=== PATIENT | male | born 2000 | race Caucasian/White ===

== ENCOUNTER 2022-02-21 04:39 | Emergency (ER) | payer OTHER ==
[~2022-02-21] VITALS: Ht 182 cm; Wt 77.0 kg
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
[2022-02-21 07:25] VITALS: BP 142/88
== END 2022-02-21 07:25 | disposition home or self-care (01) ==
LOC: ER FS 04:46
DX: S00.83XA Contusion of other part of head, initial encounter (principal); Y04.8XXA Assault by other bodily force, initial encounter
CPT/HCPCS: 70450; 70486; 72125

== ENCOUNTER 2022-10-06 14:50 | Emergency (ER) | payer OTHER ==
[~2022-10-06] VITALS: Ht 182 cm; Wt 81.0 kg
[2022-10-06] MEDS ORDERED: IBUPROFEN 600 MG (MOTRIN) TAB PO ONE (15:15)
[2022-10-06] MEDS ORDERED: ONDANSETRON 4 MG (ZOFRAN) ORAL DISSOLVE TAB PO STA (15:17)
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
[2022-10-06] MEDS ORDERED: ONDANSETRON 4 MG (ZOFRAN) ORAL DISSOLVE TAB ONE (15:18)
[2022-10-06 15:23] LABS: BASOPHILS % (AUTO) 0 % (0-10); EOSINOPHILS # (AUTO) 0.1 10^3/uL (0.0-0.3); EOSINOPHILS % (AUTO) 2 % (0-10); HEMATOCRIT 47 % (40-54); HEMOGLOBIN 15.8 g/dL (13.3-17.7); LYMPHOCYTES # (AUTO) 2.2 X 10^3 (1.0-4.0); LYMPHOCYTES % (AUTO) 31 % (12-44); MEAN CORPUSCULAR HEMOGLOBIN 31 pg (25-34); MEAN CORPUSCULAR HGB CONC 34 g/dL (32-36); MEAN CORPUSCULAR VOLUME 92 fL (80-99); MONOCYTES # (AUTO) 0.7 X 10^3 (0.0-1.0); MONOCYTES % (AUTO) 10 % (0-12); NEUTROPHILS # (AUTO) 4.1 X 10^3 (1.8-7.8); NEUTROPHILS % (AUTO) 57 % (42-75); PLATELET COUNT 146 10^3/uL (130-400); WHITE BLOOD COUNT 7.2 10^3/uL (4.3-11.0)
[2022-10-06 15:33] LABS: POTASSIUM 4.3 MMOL/L (3.6-5.0)
[2022-10-06 15:34] LABS: CALCIUM 9.2 MG/DL (8.5-10.1)
[2022-10-06 15:38] LABS: CREATININE SERUM 0.83 MG/DL (0.60-1.30)
--- NOTE | 2022-10-06 15:48 | Diagnostic Imaging Report ---
PROCEDURE: CT head without contrast. TECHNIQUE: Multiple contiguous axial images were obtained through the brain without the use of intravenous contrast. Auto Exposure Controls were utilized during the CT exam to meet ALARA standards for radiation dose reduction. INDICATION: Syncope, dizziness, and blurred vision. FINDINGS: The ventricles and sulci are within normal limits for size. There is no intracranial hemorrhage identified. There is no abnormal mass effect or shift of midline structures. IMPRESSION: Unremarkable CT of the head. Dictated by: Dictated on workstation # [id number]
[2022-10-06] MEDS ORDERED: PROC10TA10 PO (16:16)
[2022-10-06] MEDS ORDERED: ONDA4TAB11 SL (16:16)
[2022-10-06 16:31] VITALS: BP 143/70
== END 2022-10-06 16:31 | disposition home or self-care (01) ==
LOC: EDUNIT# 14:50 → ER 14:53
DX: S06.0XAA Concussion with loss of consciousness status unknown, initial encounter (principal); Q55.0 Absence and aplasia of testis; F17.290 Nicotine dependence, other tobacco product, uncomplicated; R40.2362 Coma scale, best motor response, obeys commands, at arrival to emergency department; R40.2142 Coma scale, eyes open, spontaneous, at arrival to emergency department; R40.2252 Coma scale, best verbal response, oriented, at arrival to emergency department; Z79.890 Hormone replacement therapy; W18.30XA Fall on same level, unspecified, initial encounter; W22.8XXA Striking against or struck by other objects, initial encounter
CPT/HCPCS: 36415; 70450; 80048; 85025; 93005

== ENCOUNTER 2023-01-10 12:32 | Emergency (ER) | payer OTHER ==
[~2023-01-10 12:32] MED LIST: ONDA4TAB11 SL; PROC10TA10 PO
[2023-01-10] MEDS ORDERED: NS IV 1000 ML 1,000 ML IV STA (12:45)
[2023-01-10 12:55] LABS: BASOPHILS # (AUTO) 0.1 10^3/uL (0.0-0.1); BASOPHILS % (AUTO) 1 % (0-10); EOSINOPHILS # (AUTO) 0.4 10^3/uL (0.0-0.3); EOSINOPHILS % (AUTO) 4 % (0-10); HEMATOCRIT 47 % (40-54); HEMOGLOBIN 16.2 g/dL (13.3-17.7); LYMPHOCYTES # (AUTO) 2.1 10^3/uL (1.0-4.0); LYMPHOCYTES % (AUTO) 23 % (12-44); MEAN CORPUSCULAR HEMOGLOBIN 31 pg (25-34); MEAN CORPUSCULAR HGB CONC 35 g/dL (32-36); MEAN CORPUSCULAR VOLUME 89 fL (80-99); MEAN PLATELET VOLUME 11.4 fL (9.0-12.2); MONOCYTES # (AUTO) 0.8 10^3/uL (0.0-1.0); MONOCYTES % (AUTO) 9 % (0-12); NEUTROPHILS # (AUTO) 5.6 10^3/uL (1.8-7.8); NEUTROPHILS % (AUTO) 63 % (42-75); PLATELET COUNT 163 10^3/uL (130-400); WHITE BLOOD COUNT 8.9 10^3/uL (4.3-11.0)
--- NOTE | 2023-01-10 13:05 | ED General ---
General Chief Complaint: General Problems/Pain Stated Complaint: TINGLING Source of Information: Patient History of Present Illness Date Seen by Provider: January 10, 2023 Time Seen by Provider: 12:36 Initial Comments 22-year-old male presenting with complaints of tingling sensation all over his body. He felt like it might be worse in his right forearm. He feels like he is almost off balance when he is trying to walk. He has tingling to the back of his head as well. He denies any fall, trauma, chest pain, nausea, vomiting, diarrhea, pain with urination. He states he has not had anything to eat since last night. He did have some beer last night but has not drank anything today. He states that he uses a vape pen for nicotine. He does occasionally smoke marijuana but has not used any in the last day or 2. 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 He also has ADHD and takes Adderall to help with concentration. He denies missing any doses of medications other than he does not take the Adderall routinely on the weekends or when he is not going to school. He was getting anxious and worried about the tingling sensation so he came to the emergency department to be evaluated. Timing/Duration: 1-3 Hours Severity: Moderate Associated Systoms: No Chest Pain, No Cough, No Diaphoresis, No Fever/Chills, No Headaches, No Loss of Appetite, No Malaise, No Nausea/Vomiting, No Rash, No Seizure, No Shortness of Air, No Syncope, No Weakness Allergies and Home Medications Allergies Coded Allergies: No Known Drug Allergies (Unverified , 02/21/22) Patient Home Medication List Home Medication List Reviewed: Yes Ondansetron (Ondansetron Odt) 4 Mg Tab.rapdis, 4 MG SL Q4H PRN for NAUSEA/VOMITING Prescribed by: Manuelito Pool on 10/06/221615 Prochlorperazine Maleate (Prochlorperazine Maleate) 10 Mg Tablet, 10 MG PO Q8H PRN for HEADACHE Prescribed by: Manuelito Pool on 10/06/221615 Review of Systems Review of Systems Constitutional: No chills, No dizziness, No fever EENTM: no symptoms reported Respiratory: other (Patient states that he feels like he cannot get a deep breath. He also has a pulled muscle or sore area to his chest wall but that has been there for a while now.) Cardiovascular: no symptoms reported Gastrointestinal: no symptoms reported Genitourinary: no symptoms reported Musculoskeletal: no symptoms reported Skin: No rash Psychiatric/Neurological: Denies Headache; Tingling Past [id number] Hx Patient Social History Tobacco Use?: No Use of E-Cig and/or Vaping dev: Yes E-Cig or Vaping type used: Nicotine Use of E-Cig and/or Vaping Lit: Current Everyday User Substance use?: Yes Substance type: Marijuana Substance frequency: Once in a while Alcohol Use?: Yes Alcohol type: Beer Alcohol Frequency: Once in a while Pt feels they are or have been: No Immunizations Up To Date First/Initial COVID19 Vaccinat: unknown date Second COVID19 Vaccination Mark: unknown date Third COVID19 Vaccination Date: unknown date Past Medical History Surgery/Hospitalization HX: HAS HORMONE REPLACEMENT FOR 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 WISDOM TEETH; ADHD Surgeries: No Physical Exam Vital Signs Vital Signs - First Documented 01/10/23 12:37 Temp 36.9 Pulse 95 Resp 18 B/P (MAP) 142/100 (114) Pulse Ox 100 O2 Delivery Room Air Capillary Refill : Height, Weight, BMI Height: '" Weight: lbs. oz. kg; 24.00 BMI Method: General Appearance: No Apparent Distress, WD/WN, Anxious HEENT: PERRL/EOMI, Normal ENT Inspection, Pharynx Normal, Moist Mucous Membranes Neck: Full Range of Motion, Normal Inspection, Non Tender, Supple Respiratory: Chest Non Tender, Lungs Clear, Normal Breath Sounds, No Accessory Muscle Use, No Respiratory Distress Cardiovascular: Regular Rate, Rhythm, Normal Peripheral Pulses Gastrointestinal: Normal Bowel Sounds, No Pulsatile Mass, Non Tender, Soft Extremity: Normal Capillary Refill, Normal Inspection, Normal Range of Motion, Non Tender, No Calf Tenderness, No Pedal Edema Neurologic/Psychiatric: Alert, Oriented x3, No Motor/Sensory Deficits, carrier blower II- XII Norm as Tested, Other (Anxious) Skin: Normal Color, Warm/Dry Progress/Results/Core Measures Suspected Sepsis SIRS Temperature: Pulse: Respiratory Rate: Laboratory Tests 01/10/23 12:54: White Blood Count 8.9 Blood Pressure / Mean: Laboratory Tests 01/10/23 12:54: Creatinine 0.92, Platelet Count 163, Total Bilirubin 0.8 Results/Orders Lab Results Laboratory Tests Test 01/10/23 12:51 01/10/23 12:54 01/10/23 13:40 Range/Units Glucometer 111 H 70-110 MG/DL White Blood Count 8.9 4.3-11.0 10^3/uL Red Blood Count 5.29 4.30-5.52 10^6/uL Hemoglobin 16.2 13.3-17.7 g/dL Hematocrit 47 40-54 % Mean Corpuscular Volume 89 80-99 fL Mean Corpuscular Hemoglobin 31 25-34 pg Mean Corpuscular Hemoglobin Concent 35 32-36 g/dL Red Cell Distribution Width 12.9 10.0-14.5 % Platelet Count 163 130-400 10^3/uL Mean Platelet Volume 11.4 9.0-12.2 fL Immature Granulocyte % (Auto) 0 % Neutrophils (%) (Auto) 63 42-75 % Lymphocytes (%) (Auto) 23 12-44 % Monocytes (%) (Auto) 9 0-12 % Eosinophils (%) (Auto) 4 0-10 % Basophils (%) (Auto) 1 0-10 % Neutrophils # (Auto) 5.6 1.8-7.8 10^3/uL Lymphocytes # (Auto) 2.1 1.0-4.0 10^3/uL Monocytes # (Auto) 0.8 0.0-1.0 10^3/uL Eosinophils # (Auto) 0.4 H 0.0-0.3 10^3/uL Basophils # (Auto) 0.1 0.0-0.1 10^3/uL Immature Granulocyte # (Auto) 0.0 0.0-0.1 10^3/uL Sodium Level 139 135-145 MMOL/L Potassium Level 4.0 3.6-5.0 MMOL/L Chloride Level 99 98-107 MMOL/L Carbon Dioxide Level 23 21-32 MMOL/L Anion Gap 17 H 5-14 MMOL/L Blood Urea Nitrogen 12 7-18 MG/DL Creatinine 0.92 0.60-1.30 MG/DL Estimat Glomerular Filtration Rate 122 BUN/Creatinine Ratio 13 Glucose Level 113 H 70-105 MG/DL Calcium Level 9.8 8.5-10.1 MG/DL Corrected Calcium 8.5-10.1 MG/DL Magnesium Level 1.8 1.6-2.4 MG/DL Total Bilirubin 0.8 0.1-1.0 MG/DL Aspartate Amino Transf (AST/SGOT) 69 H 5-34 U/L Alanine Aminotransferase (ALT/SGPT) 48 0-55 U/L Alkaline Phosphatase 103 40-136 U/L Total Protein 7.2 6.4-8.2 GM/DL Albumin 4.7 H 3.2-4.5 GM/DL Urine Color YELLOW Urine Clarity CLEAR Urine pH 7.0 5-9 Urine Specific Accident 1.015 L 1.016-1.022 Urine Protein NEGATIVE NEGATIVE Urine Glucose (UA) NEGATIVE NEGATIVE Urine Ketones 2+ H NEGATIVE Urine Nitrite NEGATIVE NEGATIVE Urine Bilirubin NEGATIVE NEGATIVE Urine Urobilinogen 0.2 < = 1.0 MG/DL Urine Leukocyte Esterase NEGATIVE NEGATIVE Urine RBC (Auto) NEGATIVE NEGATIVE Urine RBC 0-2 /HPF Urine WBC 0-2 /HPF Urine Squamous Epithelial Cells 0-2 /HPF Urine Crystals NONE /LPF Urine Bacteria NEGATIVE /HPF Urine Casts NONE /LPF Urine Mucus LARGE H /LPF Urine Culture Indicated NO Urine Opiates Screen NEGATIVE NEGATIVE Urine Oxycodone Screen NEGATIVE NEGATIVE Urine Methadone Screen NEGATIVE NEGATIVE Urine Propoxyphene Screen NEGATIVE NEGATIVE Urine Barbiturates Screen NEGATIVE NEGATIVE Ur Tricyclic Antidepressants Screen NEGATIVE NEGATIVE Urine Phencyclidine Screen NEGATIVE NEGATIVE Urine Amphetamines Screen NEGATIVE NEGATIVE Urine Methamphetamines Screen NEGATIVE NEGATIVE Urine Benzodiazepines Screen NEGATIVE NEGATIVE Urine Cocaine Screen NEGATIVE NEGATIVE Urine Cannabinoids Screen POSITIVE H NEGATIVE My Orders Orders - ALLEN CLAYTON MD Comprehensive Metabolic Panel (01/10/23 12:45) Ua Culture If Indicated (01/10/23 12:45) Ed Iv/Invasive Line Start (01/10/23 12:45) Cbc With Automated Diff (01/10/23 12:45) Magnesium (01/10/23 12:45) Drug Screen Stat (Urine) (01/10/23 12:45) Ns Iv 1000 Ml (Sodium Chloride 0.9%) (01/10/23 12:45) Accucheck Stat ONCE (01/10/23 13:21) Vital Signs/I&O 01/10/23 12:37 Temp 36.9 Pulse 95 Resp 18 B/P (MAP) 142/100 (114) Pulse Ox 100 O2 Delivery Room Air Capillary Refill : Progress Note #1: Progress Note Potential diagnosis of anxiety, electrolyte imbalance, hypoglycemia, pinched nerve, hyperventilation. Obtain peripheral IV access and check basic labs for complete blood count, comprehensive metabolic panel, urinalysis, urine drug screen, magnesium. Administer normal saline 1 L IV fluid bolus for hydration. Obtain Accu-Chek to see if his sugar was low since he had not eaten since last night. This came back at 111. Progress Note #2: Time: 13:19 Progress Note Complete blood count and comprehensive metabolic panel including magnesium did not show any acute significant abnormality to account for his tingling sensation. This could still be related back to peripheral nerve issue. Awaiting urinalysis. IV fluids are infusing. Progress Note #3: Progress Note Urinalysis did have 2+ ketones and specific gravity of 1015 even after a liter of normal saline. He likely is slightly dehydrated and in a fasting or ketotic state which could be contributing to his tingling. Encouraged to drink more fluids and to eat more balanced and regular meals. Counseled to follow-up and get testing on his hormone levels since it has been almost 6 months and see if they need to adjust any of that as well as they may need thyroid or additional test through the clinic. Counseled on follow-up and return precautions. Patient states he was feeling better after the fluids here in the ED. Departure Impression Primary Impression: Tingling sensation Additional Impression: Dehydration Disposition: 01 HOME, SELF-CARE Condition: Stable Departure-Patient Inst. Decision time for Depature: 13:57 Referrals: NO,LOCAL PHYSICIAN (PCP/Family) Primary Care Physician Patient Instructions: Dehydration, Adult ED, Paresthesia (DC) Add. Discharge Instructions: Stay well-hydrated and drink plenty of fluids. Try to eat small frequent regular meals to help keep your sugars up. Check back with the clinic for continued concerns. They may need to recheck your hormone levels as well as possibly look at thyroid or other tests if you continue to have symptoms. All discharge instructions reviewed with patient and/or family. Voiced under standing. ALLEN CLAYTON MD January 10, 2023 13:05
[2023-01-10 13:15] LABS: ALANINE AMINOTRANSFERASE 48 U/L (0-55); ALBUMIN 4.7 GM/DL (3.2-4.5); ALKALINE PHOSPHATASE 103 U/L (40-136); BILIRUBIN,TOTAL 0.8 MG/DL (0.1-1.0); BUN/CREATININE RATIO 13; CALCIUM 9.8 MG/DL (8.5-10.1); CARBON DIOXIDE 23 MMOL/L (21-32); CHLORIDE 99 MMOL/L (98-107); CREATININE SERUM 0.92 MG/DL (0.60-1.30); GFR ESTIMATED 122; GLUCOSE 113 MG/DL (70-105); MAGNESIUM 1.8 MG/DL (1.6-2.4); SODIUM 139 MMOL/L (135-145); TOTAL PROTEIN 7.2 GM/DL (6.4-8.2)
[2023-01-10 13:45] LABS: BILIRUBIN,URINE NEGATIVE (NEGATIVE); CLARITY,URINE CLEAR; COLOR,URINE YELLOW; GLUCOSE, URINE (UA) NEGATIVE (NEGATIVE); KETONES,URINE 2+ (NEGATIVE); LEUKOCYTE ESTERASE ,URINE NEGATIVE (NEGATIVE); NITRITE,URINE NEGATIVE (NEGATIVE); PROTEIN,URINE NEGATIVE (NEGATIVE)
[2023-01-10 13:48] LABS: BACTERIA,URINE NEGATIVE /HPF; RBC,URINE 0-2 /HPF; SQUAMOUS EPITHELIAL CELL,UR 0-2 /HPF; WBC,URINE 0-2 /HPF
[2023-01-10 13:56] LABS: AMPHETAMINE SCREEN, URINE NEGATIVE (NEGATIVE); BARBITURATE SCREEN URINE NEGATIVE (NEGATIVE); BENZODIAZEPINES SCREEN URINE NEGATIVE (NEGATIVE); CANNABINOID SCREEN, URINE POSITIVE (NEGATIVE); COCAINE SCREEN URINE NEGATIVE (NEGATIVE); OPIATE SCREEN URINE NEGATIVE (NEGATIVE); TRICYCLIC ANTIDEPRESSANTS SCRE NEGATIVE (NEGATIVE)
[2023-01-10 13:57] LABS: METHADONE STAT NEGATIVE (NEGATIVE); OXYCODONE STAT NEGATIVE (NEGATIVE); PROPOXYPHENE STAT NEGATIVE (NEGATIVE)
[2023-01-10 13:59] VITALS: BP 140/85
== END 2023-01-10 13:58 | disposition home or self-care (01) ==
LOC: EDUNIT# 12:32 → ER FS 12:34
DX: R20.2 Paresthesia of skin (principal); E86.0 Dehydration; F90.9 Attention-deficit hyperactivity disorder, unspecified type; T43.626A Underdosing of amphetamines, initial encounter; F17.290 Nicotine dependence, other tobacco product, uncomplicated; Z91.128 Patient's intentional underdosing of medication regimen for other reason; Z79.899 Other long term (current) drug therapy
CPT/HCPCS: 36415; 80053; 80306; 81000; 82947; 83735; 85025